=== PATIENT | female | born 1980 | race Caucasian/White ===

== ENCOUNTER 2017-01-12 09:22 | Emergency (ER) | payer BC ==
[~2017-01-12] VITALS: Ht 162.6 cm; Wt 61.0 kg
[2017-01-12] MEDS ORDERED: LO LOESTRIN PO (09:34)
[2017-01-12] MEDS ORDERED: CEPHALEXIN500 MG PO (10:14)
[2017-01-12] MEDS ORDERED: MUPIROCIN21 EX (10:19)
[2017-01-12 10:41] VITALS: BP 137/88
== END 2017-01-12 10:41 | disposition home or self-care (01) | DRG 605 ==
LOC: ED 09:22
PROC: 0HQHXZZ Repair Right Upper Leg Skin, External Approach (ICD-10-PCS; principal; 2017-01-12)
DX: S71.111A Laceration without foreign body, right thigh, initial encounter (principal); V80.010A Animal-rider injured by fall from or being thrown from horse in noncollision accident, initial encounter; Y93.52 Activity, horseback riding; Y92.007 Garden or yard of unspecified non-institutional (private) residence as the place of occurrence of the external cause